=== PATIENT | male | born 1955 | race African-American/Black ===

== ENCOUNTER 2016-07-25 21:48 | Observation (INO) | payer OTHER ==
[2016-07-25] MEDS ORDERED: FENTANYL CITRATE INJ/PF 100 MCG/2 ML AMPUL IV ONE (23:38)
[2016-07-25 23:50] LABS: ALANINE AMINOTRANSFERASE 55 U/L (21-72); ALBUMIN 4.7 g/dL (3.5-5.0); ALKALINE PHOSPHATASE 41 U/L (38-126); ANION GAP 15 (5-19); ASPARTATE AMINO TRANSFERASE 26 U/L (17-59); BILIRUBIN,DIRECT 0.3 mg/dL (0.0-0.4); BILIRUBIN,TOTAL 0.8 mg/dL (0.2-1.3); BLOOD UREA NITROGEN 26 mg/dL (7-20); CARBON DIOXIDE 26 mmol/L (22-30); CHLORIDE 106 mmol/L (98-107); CREATININE RESULT 1.57 mg/dL (0.52-1.25); GLUCOSE 90 mg/dL (75-110); LIPASE 190.5 U/L (23-300); POTASSIUM 3.6 mmol/L (3.6-5.0); SODIUM 146.6 mmol/L (137-145); TOTAL PROTEIN 7.1 g/dL (6.3-8.2)
[2016-07-25] MEDS ORDERED: NORMAL SALINE 1000 ML 1,000 ML IV ONE (23:54)
[2016-07-25] MEDS ORDERED: NORMAL SALINE 1000 ML 1,000 ML IV PRN (23:56)
[2016-07-25] MEDS ORDERED: HYDROMORPHONE HCL INJ/PF 2 MG/ML AMPULE IV PRN (23:58)
[2016-07-25] MEDS ORDERED: ONDANSETRON HCL INJ/PF 4 MG/2 ML SDV IV ONE (23:58)
[2016-07-26 00:11] LABS: ABSOLUTE EOSINOPHILS # (AUTO) 0.1 10^3/uL (0.0-0.6); ABSOLUTE LYMPHOCYTES (AUTO) 0.4 10^3/uL (0.5-4.7); ABSOLUTE MONOCYTES (AUTO) 0.1 10^3/uL (0.1-1.4); ABSOLUTE NEUT (AUTO) 6.3 10^3/uL (1.7-8.2); BASOPHILS % (AUTO) 0.3 % (0-2); EOSINOPHILS % (AUTO) 1.2 % (0-6); HEMATOCRIT 22.4 % (37.9-51.0); HGB HCT DIFFERENCE -0.5; MEAN CORPUSCULAR HEMOGLOBIN 29.8 pg (27.0-33.4); MEAN CORPUSCULAR HGB CONC 32.5 g/dL (32.0-36.0); MEAN CORPUSCULAR VOLUME 92 fl (80-97); MONOCYTES % (AUTO) 1.4 % (3-13); RED BLOOD COUNT 2.44 10^6/uL (4.35-5.55); RED CELL DISTRIBUTION WIDTH 22.7 % (11.5-14.0); SEGMENTED NEUTROPHILS % (AUTO) 91.1 % (42-78); WHITE BLOOD COUNT 6.9 10^3/uL (4.0-10.5)
--- NOTE | 2016-07-26 00:16 | ER Document Report ---
ED GI/ - General Chief Complaint: Abdominal Pain Stated Complaint: ABDOMINAL PAIN Time Seen by Provider: 07/25/16 23:32 Notes: Patient is a 61-year-old male comes emergency department for chief complaint of abdominal pain. He has a known umbilical hernia, he is supposed to follow-up within the next week with [place] [facility], he was actually supposed to have this repaired last year but this was delayed due to a stroke. He denies any abdominal surgeries, he does not smoke. He states that this evening pain suddenly became sharp and constant. Last bowel movement earlier today and was nonbloody. He denies vomiting, fever, or other locations of pain. He takes aspirin, is not on a blood thinner. Past medical history of type 2 diabetes, CVA, hypertension. TRAVEL OUTSIDE OF THE [place] IN LAST 30 DAYS: No - Related Data Allergies/Adverse Reactions: enalapril [Enalapril] Allergy (Verified 07/25/16 22:37) swelling Home Medications: Current Home Medications Amlodipine Besylate 10 mg PO DAILY 07/25/16 [History] Ascorbic Acid [Vitamin C 500 mg Tablet] 500 mg PO DAILY 07/25/16 [History] Aspirin/Dipyridamole [Aggrenox 25 mg/200 mg Capsule SA] 1 cap.sr PO Q12 [History] Cholecalciferol (Vitamin D3) [Vitamin D3] 5,000 unit PO DAILY 07/25/16 [History] Cyanocobalamin (Vitamin B-12) [B-12] 1,000 mcg PO DAILY 07/25/16 [History] Folic Acid 1 mg PO DAILY 07/25/16 [History] Glimepiride [Amaryl 4 mg Tablet] 4 mg PO BID 07/25/16 [History] Iron 65 mg PO DAILY 07/25/16 [History] Losartan/Hydrochlorothiazide [Hyzaar 100-25 Tablet] 1 each PO DAILY 07/25/16 [ History] Metformin HCl [Metformin HCl ER] 1,000 mg PO BID 07/25/16 [History] Methotrexate Sodium [Methotrexate] 8 tab PO Q7D 07/25/16 [History] Metoprolol Tartrate 25 mg PO BID 07/25/16 [History] Pioglitazone HCl 15 mg PO DAILY 07/25/16 [History] Simvastatin 20 mg PO DAILY 07/25/16 [History] Past Medical History - General Information source: Patient - Social History Smoking Status: Never Smoker Frequency of alcohol use: None Drug Abuse: None Lives with: Family Family History: None Patient has suicidal ideation: No Patient has homicidal ideation: No - Past Medical History Cardiac Medical History: Reports: Hx Coronary Artery Disease, Hx Hypertension Denies: Hx Heart Attack Pulmonary Medical History: Denies: Hx Asthma, Hx Bronchitis, Hx COPD, Hx Pneumonia Neurological Medical History: Denies: Hx Cerebrovascular Accident, Hx Seizures Endocrine Medical History: Reports: Hx Diabetes Mellitus Type 2 Renal/ Medical History: Denies: Hx Peritoneal Dialysis Musculoskeltal Medical History: Reports Hx Arthritis - rheumatoid Surgical Hx: Negative - Immunizations Hx Diphtheria, Pertussis, Tetanus Vaccination: No Review of Systems - Review of Systems Constitutional: No symptoms reported EENT: No symptoms reported Cardiovascular: No symptoms reported Respiratory: No symptoms reported Gastrointestinal: See HPI Genitourinary: No symptoms reported Male Genitourinary: No symptoms reported Musculoskeletal: No symptoms reported Skin: No symptoms reported Hematologic/Lymphatic: No symptoms reported Neurological/Psychological: No symptoms reported Physical Exam - Vital signs Vitals: Temp Pulse Resp BP Pulse Ox 99.0 F 89 20 158/65 H 95 07/25/16 21:52 07/25/16 21:52 07/25/16 21:52 07/25/16 21:52 07/25/16 21:52 Interpretation: Normal - General General appearance: Alert In distress: Mild - patient shifting uncomfortably, no severe distress - HEENT Head: Normocephalic, Atraumatic Eyes: Normal Cornea: Normal Extraocular movements intact: Yes Eyelashes: Normal Pupils: PERRL Mouth/Lips: Normal Mucous membranes: Normal Pharynx: Normal Neck: Normal - Respiratory Respiratory status: No respiratory distress Chest status: Nontender Breath sounds: Normal. No: Decreased air movement, Wheezing Chest palpation: Normal - Cardiovascular Rhythm: Regular. No: Tachycardia Heart sounds: Normal auscultation, S1 appreciated, S2 appreciated Murmur: No - Abdominal Inspection: Normal Distension: No distension Bowel sounds: Normal Tenderness: Tender - There is a red, firm, very tender umbilical hernia on examination, no bowel sounds in the hernia, soft bowel sounds surrounding the hernia, abdominal exam is unremarkable otherwise Organomegaly: No organomegaly - Back Back: Normal, Nontender. No: Tender - Extremities General upper extremity: Normal inspection, Nontender, Normal color, Normal ROM , Normal temperature General lower extremity: Normal inspection, Nontender, Normal color, Normal ROM , Normal temperature, Normal weight bearing. No: Avel's sign - Neurological Neuro grossly intact: Yes Cognition: Normal Orientation: AAOx4 [place] Coma Scale Eye Opening: Spontaneous Kat Coma Scale Verbal: Oriented [place] Coma Scale Motor: Obeys Commands Kat Coma Scale Total: 15 Speech: Normal Motor strength normal: LUE, RUE, LLE, RLE Sensory: Normal - Psychological Associated symptoms: Normal affect, Normal mood - Skin Skin Temperature: Warm Skin Moisture: Dry Skin Color: Normal Course - Re-evaluation Re-evalutation: Lab reports blood clotted (CBC). Will have to redraw. Patient with incarcerated umbilical hernia on examination, gave fentanyl but unable to reduce. Patient discussed with Dr. Bobby. 07/26/16 23:55 Called and spoke with Surgeon diamond sander, Dr. Donahue. CBC shows microcytic anemia at 7.6 hemoglobin, type and screen performed, checked rectal examination which is nonbloody, no blood on laboratory results. Chemistry shows acute renal insufficiency, patient given IV fluids. Dr. Donahue examined the patient at bedside, he recommends surgery for incarcerated hernia. Informed him of the hemoglobin, patient will have type and screen performed, he requests as needed pain medication and continue with fluids as well 07/26/16 03:19 Dr. Lyn called, asked that I put in antibiotic and pain medication orders because of delay in the operating room availability (another patient still in surgery). - Vital Signs Vital signs: Temp Pulse Resp BP Pulse Ox 97.2 F 81 16 145/67 H 94 07/26/16 05:07 07/26/16 05:07 07/26/16 05:07 07/26/16 05:07 07/26/16 05:07 - Laboratory Result Diagrams: 07/25/16 23:57 07/25/16 23:15 Laboratory results interpreted by me: 07/25/16 07/25/16 07/25/16 23:15 23:57 23:57 RBC 2.44 L Hgb 7.3 L Hct 22.4 L RDW 22.7 H Plt Count 147 L Seg Neutrophils % 91.1 H Lymphocytes % 6.0 L Monocytes % 1.4 L Absolute Lymphocytes 0.4 L Sodium 146.6 H BUN 26 H Creatinine 1.57 H Est GFR ( Amer) 55 L Est GFR (Non-Af Amer) 45 L Lactic Acid 0.6 L Crossmatch 07/26/16 00:45 RBC Hgb Hct RDW Plt Count Seg Neutrophils % Lymphocytes % Monocytes % Absolute Lymphocytes Sodium BUN Creatinine Est GFR ( Amer) Est GFR (Non-Af Amer) Lactic Acid Crossmatch See Detail Discharge - Discharge Clinical Impression: Incarcerated umbilical hernia, Anemia requiring transfusions Condition: Stable Disposition: ADMITTED INPATIENT Admitting Provider: Surgicalist Unit Admitted: OR
[2016-07-26 00:18] LABS: HEMOGLOBIN 7.3 g/dL (13.5-17.0)
[2016-07-26] MEDS ORDERED: NORMAL SALINE 250 ML IV PRN ×2 (00:32)
--- NOTE | 2016-07-26 01:13 | HISTORY AND PHYSICAL E ---
History and Physical NAME: ALYCIA CELAYA : 1955 AGE: 61Y ADMITTED: 07/26/2016 ROOM: CHIEF COMPLAINT: Abdominal pains. HISTORY OF PRESENT ILLNESS: This is a 61-year-old male who has been complaining of abdominal pains around the umbilical area for the past few days, worse 07/25/16. He denies any nausea nor vomiting. He is supposed to have consultation at [facility] next week for elective repair of umbilical hernia. PAST HISTORY: 1. History of rheumatoid arthritis. 2. Diabetes mellitus. 3. Hypertension. 4. Stroke 12/2015 with a left-sided weakness but since then has fully recovered. 5. He is supposed to have his umbilical hernia repair 01/2016, but because of the stroke it was postponed. MEDICATIONS: 1. Amlodipine and metoprolol for hypertension. 2. Metformin for diabetes. 3. Simvastatin for hyperlipidemia. 4. Methotrexate for rheumatoid arthritis. ALLERGIES: No known. SOCIAL HISTORY: Denies smoking or drinking, nor drug use. REVIEW OF SYSTEMS: Complaining of severe umbilical pains for the past several hours. The pains got worse last night and brought him to the emergency room. In the past he could reduce the hernia but now in the past couple of weeks unable to do so. He denies any chest pain, shortness of breath, diarrhea, or constipation. No dysuria. The rest of the symptoms are unremarkable. He has some joint pains due to rheumatoid arthritis. FAMILY HISTORY: Noncontributory. PHYSICAL EXAMINATION: GENERAL: Well-developed, well-nourished, 61-year-old male alert and oriented, complaining of umbilical pain. HEENT: Neck is supple, no thyromegaly. LUNGS: Clear. HEART: Regular sinus rhythm. ABDOMEN: Soft, but the area of the umbilicus is incarcerated hernia with erythema and inflammation. This is also markedly tender. EXTREMITIES: No edema. LABORATORY DATA: Hemoglobin is 7.6. His most recent hemoglobin was 9.5. IMPRESSION: 1. Incarcerated umbilical hernia with starting cellulitis. 2. Diabetes mellitus. 3. Rheumatoid arthritis. 4. Hypertension. 5. Hypertriglyceridemia. 6. History of stroke. PLAN: To start transfusing him and repair the umbilical hernia with possible use of mesh, possible bowel resection if indeed there is bowel that is strangulated. Start him on IV antibiotics and hydrate him. DICTATING PHYSICIAN: KYLE SESAY M.D. [id number] PHY#: [id number] ID: [id number] JOB#: [id number] ACCT: [id number] cc:KYLE SESAY M.D. >
[2016-07-26] MEDS ORDERED: MIDAZOLAM 2 MG/2 ML INJ ONE (02:54)
[2016-07-26] MEDS ORDERED: FENTANYL CITRATE INJ/PF 100 MCG/2 ML AMPUL ONE ×2 (02:54)
[2016-07-26] MEDS ORDERED: HYDROMORPHONE HCL INJ/PF 2 MG/ML AMPULE ONE (02:54)
[2016-07-26] MEDS ORDERED: ACETAMINOPHEN 100 ML IV ONE (02:55)
[2016-07-26] MEDS ORDERED: PROPOFOL INJ 200 MG/20 ML VIAL IV ONE (02:55)
[2016-07-26] MEDS ORDERED: HYDROMORPHONE HCL INJ/PF 2 MG/ML AMPULE IV ONE (03:17)
[2016-07-26] MEDS ORDERED: KETAMINE HCL INJ 500 MG/10 ML VIAL ONE (03:39)
[2016-07-26] MEDS: ERTAPENEM SODIUM INJ 1 GM VIAL IV ONE ×2 (03:40→03:50)
[2016-07-26] MEDS ORDERED: DIPHENHYDRAMINE HCL 50 MG/ML VIAL IV PRN (04:33)
[2016-07-26] MEDS ORDERED: FENTANYL CITRATE INJ/PF 100 MCG/2 ML AMPUL IV PRN ×3 (04:33)
[2016-07-26] MEDS ORDERED: MORPHINE SULFATE 10 MG/ML INJ IV PRN (04:33)
--- NOTE | 2016-07-26 06:24 | OPERATIVE REPORT E ---
Operative Report NAME: ALYCIA CELAYA : 1955 AGE: 61Y DATE OF SURGERY: 07/26/2016 ROOM: ED11 PREOPERATIVE DIAGNOSIS: Incarcerated umbilical hernia. POSTOPERATIVE DIAGNOSIS: Incarcerated umbilical hernia with omentum in the sac. PROCEDURE DONE: Resection of incarcerated omentum and repair of umbilical hernia with mesh. SURGEON: KYLE SESAY M.D. ANESTHESIA: General. INDICATION: This is a 61-year-old male who was known to have an umbilical hernia. In the past few days, the hernia was not reducible and yesterday developed severe pains with some nausea. He was seen in the emergency room and noted to have a markedly tender and reddened umbilical hernia site. The patient is a diabetic and also takes methotrexate for rheumatoid arthritis. This may account for the normal white count. DESCRIPTION OF PROCEDURE: After adequate general anesthesia, patient was placed in supine position and the abdomen prepped and draped in the usual sterile fashion. An appropriate timeout was done. Next, a midline incision made over the umbilicus and carried down to the subcutaneous area with cautery. The sac was then identified and noted to be thickened with some edema. The sac was bluntly dissected with hemostat and cautery. This dissected all the way down into the fascia. The sac was subsequently opened and a thickened omentum was noted. The omentum was pulled over the fascia and the base, which was quite soft, was serially clamped and divided over the clamp. No evidence of bowel involvement in the hernia sac. The glans were then ligated with 0 Vicryl ties. Omentum roughly measured about 8 cm in length and about 4 cm in diameter. It was then sent for pathology. Next, the sac was then divided right at the junction of the fascia. It was then further dissected below the fascia bluntly to allow placement of 3.2 inch Ventralex mesh. The fascia defect was about 2.5 cm in diameter. There is still quite a lot of edema around the sac and further hemostasis was then obtained with cautery. Next, the Ventralex mesh was then sutured in a U stitch in the fascia on the 4 corners of the Ventralex. The Ventralex was subsequently tied after placement of 4 corner sutures using 0 Vicryl. The handle of the Ventralex subsequently divided close to the fascia. Next, the part of the fascia and the peritoneum was then sutured back together to partially close the hernia defect. An 0 Vicryl suture was then placed to tie down the umbilicus to the mid part of the fascia. The area was subsequently irrigated with saline solution. Next, the skin incisions were then closed with gab. A piece of cotton ball soaked in Betadine was then used to be placed on top of the umbilicus also to primarily make the skin attach to the underlying structures as a pressure dressing. A transparent dressing was then placed over the incision site and over the umbilicus. Needle, instrument, and sponge count were all correct, and estimated blood loss about 20 mL. Patient tolerated procedure well. Needle, instrument, and sponge count were all correct. Patient brought to the recovery room in satisfactory condition. Of note, patient had a hemoglobin of 7.5, maybe from the methotrexate therapy and his diabetes and had 2 units of packed cells, which was started before the procedure. DICTATING PHYSICIAN: KYLE SESAY M.D. [id number] Y#: [id number] ID: [id number] JOB#: [id number] ACCT: [id number] cc:KYLE SESAY M.D. >
[2016-07-26] MEDS ORDERED: HYDROMORPHONE HCL INJ/PF 2 MG/ML AMPULE IV PRN ×2 (07:50)
[2016-07-26] MEDS ORDERED: OXYCODONE-ACETAMINOPHEN 5-325 MG TABLET PO PRN (07:51)
[2016-07-26] MEDS ORDERED: ONDANSETRON HCL INJ/PF 4 MG/2 ML SDV IV PRN (07:51)
[2016-07-26] MEDS ORDERED: ROCURONIUM BROMIDE INJ 50 MG/5 ML VIAL IV ONE (09:15)
[2016-07-26] MEDS ORDERED: GLYCOPYRROLATE INJ 0.4 MG/2 ML VIAL ONE (09:15)
[2016-07-26] MEDS ORDERED: NEOSTIGMINE METHYLSULFATE 10 MG/10 ML VIAL ONE (09:15)
[2016-07-26] MEDS ORDERED: SUCCINYLCHOLINE CHLORIDE INJ 200 MG/10 ML VIAL ONE (09:15)
[2016-07-26 12:10] LABS: HEMATOCRIT 27.8 % (37.9-51.0); HGB HCT DIFFERENCE -0.8; MEAN CORPUSCULAR HEMOGLOBIN 29.9 pg (27.0-33.4); MEAN CORPUSCULAR HGB CONC 32.3 g/dL (32.0-36.0); MEAN CORPUSCULAR VOLUME 92 fl (80-97); RED BLOOD COUNT 3.01 10^6/uL (4.35-5.55); RED CELL DISTRIBUTION WIDTH 20.5 % (11.5-14.0); WHITE BLOOD COUNT 6.6 10^3/uL (4.0-10.5)
[2016-07-26 12:40] LABS: ANION GAP 13 (5-19); BLOOD UREA NITROGEN 20 mg/dL (7-20); CALCIUM 8.9 mg/dL (8.4-10.2); CARBON DIOXIDE 23 mmol/L (22-30); CHLORIDE 106 mmol/L (98-107); CREATININE RESULT 1.23 mg/dL (0.52-1.25); GLUCOSE 230 mg/dL (75-110); POTASSIUM 3.8 mmol/L (3.6-5.0); SODIUM 142.2 mmol/L (137-145)
[2016-07-26 13:01] LABS: BASOPHILS % (MANUAL) 0 % (0-2); EOSINOPHILS % (MANUAL) 0 % (0-6); LYMPHOCYTES % (MANUAL) 7 % (13-45); TOTAL CELLS COUNTED 100
[2016-07-26 13:02] LABS: ANISOCYTOSIS 2+; OVALOCYTES 1+; POIKILOCYTOSIS 1+; POLYCHROMASIA SLIGHT; SCHISTOCYTES SLIGHT; TEAR DROP CELLS SLIGHT; TOXIC GRANULATION SLIGHT
[2016-07-26] MEDS ORDERED: TAMSULOSIN HCL 0.4 MG CAP.SR.24H PO ONE (15:30)
--- NOTE | 2016-07-26 17:03 | DISCHARGE SUMMARY E ---
Discharge Summary NAME: ALYCIA CELAYA : 1955 AGE: 61Y ADMITTED: 07/26/2016 DISCHARGED: 07/26/2016 PROCEDURE DONE: Reduction of umbilical hernia with repair using mesh. SUMMARY: This is a 61-year-old male who complained of severe umbilical pain yesterday. Pains were very significant and the area was erythematous. He had a CAT scan that showed no bowel involved in the hernia, but at any rate he is a diabetic and he might be developing cellulitis to an abscess of the umbilical site. This also was not able to be reduced in the emergency room. He then underwent reduction and repair of the umbilical hernia and placement of mesh. This was done around 4:00 this morning. Today, he is tolerating his diet well and the incision looks good. However, he has a little difficulty voiding. An order for Flomax was given and this improved his urination and he can be discharged and to be followed up in the surgical clinic in about 1-2 weeks. He is advised not to lift any heavy stuff more than 10 pounds. 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 DICTATING PHYSICIAN: KYLE SESAY M.D. [id number] PHY#: [id number] ID: [id number] JOB#: [id number] ACCT: [id number] cc:Kamini LAUGHLIN PA >
[2016-07-26] MEDS ORDERED: LIDOCAINE 2% URO-JET 5 ML KIT MM ONE (20:30)
--- NOTE | 2016-07-26 20:43 | OPERATIVE REPORT E ---
Operative Report NAME: ALYCIA CELAYA : 1955 AGE: 61Y DATE OF SURGERY: 07/26/2016 ROOM: 424 PREOPERATIVE DIAGNOSIS: Urinary retention and failure to place a Samayoa by nurses. POSTOPERATIVE DIAGNOSIS: Urinary retention and failure to place a Samayoa by nurses. OPERATION: Placement of coude Samayoa catheter. SURGEON: KYLE SESAY M.D. ANESTHESIA: Topical lidocaine. INDICATION: This is a 61-year-old male who underwent repair of incarcerated umbilical hernia yesterday. Today the patient unable to void. He can only void about 50 mL to 100 mL at a time. He had a bladder scan that showed 750 ml. The nurses attempted to place a Samayoa catheter but unable to do so. PROCEDURE: The patient was placed in a supine position and the penile area prepped and draped in the usual sterile fashion. Uro-Jet Xylocaine gel was then injected through the penis and left for about a minute. Following this, an 18-Chinese coude Samayoa catheter was then inserted into the bladder. The bladder balloon was inflated and the catheter connected to a bag. Initial drainage about 500 mL. The patient with some relief. The patient was started on Flomax this afternoon. We will continue the Flomax and we will discontinue the Samayoa catheter spotter driver tomorrow and see if he can void on his own. If he is unable to void, will place another coude catheter and discharge him to be followed up in the urology outpatient clinic. DICTATING PHYSICIAN: KYLE SESAY M.D. [id number] PHY#: [id number] ID: [id number] JOB#: [id number] ACCT: [id number] cc:KYLE SESAY M.D. >
[2016-07-26] MEDS ORDERED: ERTAPENEM SODIUM 1 GM in NORMAL SALINE 50 ML IV SCH (22:00)
--- NOTE | 2016-07-27 08:44 | DISCHARGE SUMMARY E ---
Discharge Summary NAME: ALYCIA CELAYA : 1955 AGE: 61Y ADMITTED: 07/26/2016 DISCHARGED: 07/27/2016 FINAL DIAGNOSIS: Incarcerated umbilical hernia. PROCEDURE DONE: Reduction of incarcerated umbilical hernia with resection of incarcerated omentum and repair of the hernia with Ventralex mesh. HOSPITAL COURSE: Postoperatively, patient was supposed to be discharged 07/26/2016, but patient unable to void last night and has about 750 mL of bladder urine on the scan. There was difficulty with placement of Samayoa catheter by the nurses and I eventually put in a coude Samayoa catheter with some difficulty. This morning, patient is doing well except the abdomen is somewhat distended and patient unable to pass flatus. The plan is to be re-evaluated by Dr. Royal today prior to discharge and to discharge him with a Samayoa catheter. He might need to be on p.o. antibiotics while on Samayoa and also for the cellulitis from the incarceration of the umbilical hernia. Patient to be scheduled for followup at the [facility]rology Clinic in about 5 days for removal of the Samayoa catheter. ADDENDUM: Patient is a diabetic and he may have some ileus both from the diabetes and from the urinary bladder distention last night. Also, he might be recovering from the cellulitis of the umbilical hernia. DICTATING PHYSICIAN: KYLE SESAY M.D. [id number] PHY#: [id number] ID: [id number] JOB#: [id number] ACCT: [id number] cc:Kamini LAUGHLIN PA >
[2016-07-27] MEDS ORDERED: SIMETHICONE 80 MG TAB.CHEW PO PRN (09:10)
[2016-07-27] MEDS ORDERED: BISACODYL 10 MG SUPP.RECT PR ONE (10:00)
[2016-07-27 14:30] VITALS: BP 156/65
== END 2016-07-27 14:30 | disposition home or self-care (01) ==
LOC: ER 21:48 → UNDOADMIN 07-26 01:37 → EH 07-26 01:37 → 4S 07-26 06:46 → INTOOBSV 07-26 17:43 → 4S 07-26 17:43
PROC: 0T9B70Z Drainage of Bladder with Drainage Device, Via Natural or Artificial Opening (ICD-10-PCS; 2016-07-26)
PROC: 30233N1 Transfusion of Nonautologous Red Blood Cells into Peripheral Vein, Percutaneous Approach (ICD-10-PCS; 2016-07-26)
PROC: 0WUF4JZ Supplement Abdominal Wall with Synthetic Substitute, Percutaneous Endoscopic Approach (ICD-10-PCS; principal; 2016-07-26 03:50)
DX: K42.0 Umbilical hernia with obstruction, without gangrene (principal); L03.818 Cellulitis of other sites; R33.9 Retention of urine, unspecified; D50.9 Iron deficiency anemia, unspecified; N28.9 Disorder of kidney and ureter, unspecified; M06.9 Rheumatoid arthritis, unspecified; E11.9 Type 2 diabetes mellitus without complications; I10 Essential (primary) hypertension; E78.5 Hyperlipidemia, unspecified; I25.10 Atherosclerotic heart disease of native coronary artery without angina pectoris; Z86.73 Personal history of transient ischemic attack (TIA), and cerebral infarction without residual deficits; Z79.899 Other long term (current) drug therapy; Z79.82 Long term (current) use of aspirin; Z79.84 Long term (current) use of oral hypoglycemic drugs
CPT/HCPCS: 49653; 51702; 99285; 96361; 96374; 96375; 86900; 86901; 36415 ×2; 36430; 86850; 83605; 83690; 85025; 82272; 80048; 80053; 86920; 88305 ×2; G0378 ×2; P9016; J2250; J3490 ×2; J3010 ×2; J1335; J1170; J0330; J2405; J7030; J2704; J0131; 750

== ENCOUNTER 2016-07-31 16:14 | Observation (INO) | payer OTHER ==
[2016-07-31] MEDS ORDERED: NORMAL SALINE 1000 ML 1,000 ML IV ONE ×2 (17:00→20:09)
--- NOTE | 2016-07-31 17:00 | ER Document Report ---
ED Medical Screen (RME) - General Chief Complaint: Abdominal Pain Stated Complaint: ABDOMINAL PAIN/SWELLING,CAN'T URINATE Time Seen by Provider: 07/31/16 16:55 Notes: This 61-year-old male patient had an umbilical hernia repair done on 07/26/2016. Not had a bowel movement 3-4 days. He had the Samayoa catheter removed at 9:00 this morning and has not urinated since then. He reports he has been having fever, abdomen hurts is distended and cannot eat or drink. I have greeted and performed a rapid initial assessment of this patient. A comprehensive ED assessment and evaluation of the patient, analysis of test results and completion of the medical decision making process will be conducted by additional ED providers. TRAVEL OUTSIDE OF THE [place] IN LAST 30 DAYS: No - Related Data Allergies/Adverse Reactions: enalapril [Enalapril] Allergy (Verified 07/25/16 22:37) swelling Past Medical History - Past Medical History Cardiac Medical History: Reports: Hx Coronary Artery Disease, Hx Hypertension Denies: Hx Heart Attack Pulmonary Medical History: Denies: Hx Asthma, Hx Bronchitis, Hx COPD, Hx Pneumonia Neurological Medical History: Denies: Hx Cerebrovascular Accident, Hx Seizures Endocrine Medical History: Reports: Hx Diabetes Mellitus Type 2 Renal/ Medical History: Denies: Hx Peritoneal Dialysis Musculoskeltal Medical History: Reports Hx Arthritis - rheumatoid - Immunizations Hx Diphtheria, Pertussis, Tetanus Vaccination: No Physical Exam - Vital signs Vitals: Temp Pulse Resp BP Pulse Ox 99.9 F 83 20 154/59 H 95 07/31/16 16:27 07/31/16 16:27 07/31/16 16:27 07/31/16 16:27 07/31/16 16:27 Course - Vital Signs Vital signs: Temp Pulse Resp BP Pulse Ox 99.9 F 83 20 154/59 H 95 07/31/16 16:27 07/31/16 16:27 07/31/16 16:27 07/31/16 16:27 07/31/16 16:27
--- NOTE | 2016-07-31 17:43 | RADIOLOGY REPORT (SQ) ---
EXAM DESCRIPTION: KUB/ABDOMEN (SINGLE VIEW) COMPLETED DATE/TIME: 07/31/2016 5:24 pm REASON FOR STUDY: constipation, 5 days post hernia repair COMPARISON: None. NUMBER OF VIEWS: One view. TECHNIQUE: Supine radiographic image of the abdomen acquired. LIMITATIONS: None. FINDINGS: BOWEL GAS PATTERN: Gas pattern is nonspecific. CALCIFICATIONS: Surgical clips are seen in the midline. SOFT TISSUES: No gross mass or suggestion of organomegaly. HARDWARE: None in the abdomen. BONES: No acute fracture. No worrisome bone lesions. OTHER: No other significant finding. IMPRESSION: Nonspecific gas pattern. Postsurgical changes are present clips in the midline. TECHNICAL DOCUMENTATION: JOB ID: [id number] [email or web address] All Rights Reserved
[2016-07-31 19:06] LABS: HEMATOCRIT 34.2 % (37.9-51.0); HEMOGLOBIN 10.7 g/dL (13.5-17.0); HGB HCT DIFFERENCE -2.1; MEAN CORPUSCULAR HEMOGLOBIN 29.2 pg (27.0-33.4); MEAN CORPUSCULAR HGB CONC 31.3 g/dL (32.0-36.0); MEAN CORPUSCULAR VOLUME 93 fl (80-97); RED BLOOD COUNT 3.67 10^6/uL (4.35-5.55); RED CELL DISTRIBUTION WIDTH 20.7 % (11.5-14.0); WHITE BLOOD COUNT 11.7 10^3/uL (4.0-10.5)
[2016-07-31 19:08] LABS: ALANINE AMINOTRANSFERASE 30 U/L (21-72); ALKALINE PHOSPHATASE 50 U/L (38-126); ANION GAP 16 (5-19); ASPARTATE AMINO TRANSFERASE 20 U/L (17-59); BILIRUBIN,DIRECT 0.5 mg/dL (0.0-0.4); BILIRUBIN,TOTAL 1.5 mg/dL (0.2-1.3); BLOOD UREA NITROGEN 18 mg/dL (7-20); CALCIUM 9.8 mg/dL (8.4-10.2); CARBON DIOXIDE 20 mmol/L (22-30); CHLORIDE 105 mmol/L (98-107); GLUCOSE 180 mg/dL (75-110); POTASSIUM 3.8 mmol/L (3.6-5.0); SODIUM 140.9 mmol/L (137-145); TOTAL PROTEIN 6.5 g/dL (6.3-8.2)
[2016-07-31 19:23] LABS: BAND NEUTROPHILS % (MANUAL) 3 % (3-5); BASOPHILS % (MANUAL) 0 % (0-2); EOSINOPHILS % (MANUAL) 0 % (0-6); LYMPHOCYTES % (MANUAL) 4 % (13-45); TOTAL CELLS COUNTED 100
[2016-07-31 19:27] LABS: ACANTHOCYTES SLIGHT; ANISOCYTOSIS 3+; OVALOCYTES 2+; POIKILOCYTOSIS 2+; POLYCHROMASIA SLIGHT; SCHISTOCYTES 1+; TEAR DROP CELLS 1+
--- NOTE | 2016-07-31 20:04 | ER Document Report ---
ED GI/ - General Chief Complaint: Abdominal Pain Stated Complaint: ABDOMINAL PAIN/SWELLING,CAN'T URINATE Time Seen by Provider: 07/31/16 16:55 Notes: Patient is a 61-year-old male, past medical history diabetes (on metformin), presents with generalized abdominal pain and tenderness since his incarcerated umbilical hernia repair performed [address] Donahue. He initially was unable to urinate after his das was removed by Urology this morning, but he urinated when he arrived to the ER. Taking his Percocet and started Colace this morning. He is also feeling nauseous, but has not vomited. Patient has not passed gas or had a bowel movement since his surgery. Denies fevers, flank pain, hematuria, chest pain, shortness of breath or rash. TRAVEL OUTSIDE OF THE [place] IN LAST 30 DAYS: No - Related Data Allergies/Adverse Reactions: enalapril [Enalapril] Allergy (Verified 07/25/16 22:37) swelling Past Medical History - General Information source: Patient - Social History Smoking Status: Unknown if Ever Smoked Family History: None - Past Medical History Cardiac Medical History: Reports: Hx Coronary Artery Disease, Hx Hypertension Denies: Hx Heart Attack Pulmonary Medical History: Denies: Hx Asthma, Hx Bronchitis, Hx COPD, Hx Pneumonia Neurological Medical History: Denies: Hx Cerebrovascular Accident, Hx Seizures Endocrine Medical History: Reports: Hx Diabetes Mellitus Type 2 Renal/ Medical History: Denies: Hx Peritoneal Dialysis Musculoskeltal Medical History: Reports Hx Arthritis - rheumatoid - Immunizations Hx Diphtheria, Pertussis, Tetanus Vaccination: No Hx Pneumococcal Vaccination: 02/11/15 Review of Systems - Review of Systems Notes: REVIEW OF SYSTEMS: CONSTITUTIONAL: -fevers, -chills EENT: -eye pain, -difficulty swallowing, -nasal congestion CARDIOVASCULAR:-chest pain, -syncope. RESPIRATORY: -cough, -SOB GASTROINTESTINAL: +abdominal pain, +constipation, +nausea, -vomiting, -diarrhea GENITOURINARY: -dysuria, -hematuria MUSCULOSKELETAL: -back pain, -neck pain SKIN: -rash or skin lesions. HEMATOLOGIC: -easy bruising or bleeding. LYMPHATIC: -swollen, enlarged glands. NEUROLOGICAL: -altered mental status or loss of consciousness, -headache, - neurologic symptoms PSYCHIATRIC: -anxiety, -depression. ALL OTHER SYSTEMS REVIEWED AND NEGATIVE. Physical Exam - Vital signs Vitals: Temp Pulse Resp BP Pulse Ox 99.9 F 83 20 154/59 H 95 07/31/16 16:27 07/31/16 16:27 07/31/16 16:27 07/31/16 16:27 07/31/16 16:27 - Notes Notes: PHYSICAL EXAMINATION: GENERAL: Well-appearing, well-nourished and in no acute distress. HEAD: Atraumatic, normocephalic. EYES: Pupils equal round and reactive to light, extraocular movements intact, sclera anicteric, conjunctiva are normal. ENT: nares patent, oropharynx clear without exudates. Moist mucous membranes. NECK: Normal range of motion, supple without lymphadenopathy LUNGS: Breath sounds clear to auscultation bilaterally and equal. No wheezes rales or rhonchi. HEART: Regular rate and rhythm without murmurs ABDOMEN: Distended, very intermittent high-pitched sounds on auscultation, diffusely tender; well-healing midline surgical scar and gab without redness or discharge EXTREMITIES: Normal range of motion, no pitting or edema. No cyanosis. NEUROLOGICAL: Cranial nerves grossly intact. Normal speech, normal gait. Normal sensory and motor exams. PSYCH: Normal mood, normal affect. SKIN: Warm, Dry, normal turgor, no rashes or lesions noted. Course - Re-evaluation Re-evalutation: 07/31/16 20:[address] Donahue about concern for ileus versus obstruction. He recommends observing the patient overnight, keeping patient n.p.o. and providing IV hydration. Pt urinated a large amount while in the ED. Pt and comfortable with plan. - Vital Signs Vital signs: Temp Pulse Resp BP Pulse Ox 99.9 F 83 20 154/59 H 95 07/31/16 16:27 07/31/16 16:27 07/31/16 16:27 07/31/16 16:27 07/31/16 16:27 - Laboratory Result Diagrams: 07/31/16 18:35 07/31/16 18:35 Laboratory results interpreted by me: 07/31/16 07/31/16 18:35 18:35 WBC 11.7 H RBC 3.67 L Hgb 10.7 L Hct 34.2 L MCHC 31.3 L RDW 20.7 H Seg Neuts % (Manual) 89 H Lymphocytes % (Manual) 4 L Abs Neuts (Manual) 10.8 H Carbon Dioxide 20 L Creatinine 1.40 H Est GFR (Non-Af Amer) 52 L Glucose 180 H Total Bilirubin 1.5 H Direct Bilirubin 0.5 H - Diagnostic Test Radiology reviewed: Image reviewed, Reports reviewed Radiology results interpreted by me: KUB: non-specific bowel gas pattern Discharge - Discharge Clinical Impression: Abdominal pain Qualifiers: Abdominal location: generalized Qualified Code(s): R10.84 - Generalized abdominal pain Condition: Stable Disposition: ADMITTED OBSERVATION Admitting Provider: Surgicalist - [facility] Admitted: Surgical Floor
[2016-08-01] MEDS ORDERED: DEXTROSE 40% GEL 15 GM TUBE PO PRN ×2 (00:46)
[2016-08-01] MEDS ORDERED: GLUCAGON,HUMAN RECOMB 1 MG INJ SUBCUT PRN (00:46)
[2016-08-01] MEDS ORDERED: DEXTROSE 50%-WATER 25 GM/50 ML DISP.SYRIN IV PRN ×2 (00:46)
[2016-08-01] MEDS ORDERED: NORMAL SALINE 1000 ML 1,000 ML IV PRN (01:08)
[2016-08-01] MEDS ORDERED: HYDROMORPHONE HCL INJ/PF 2 MG/ML AMPULE IV PRN (01:08)
[2016-08-01] MEDS ORDERED: ACETAMINOPHEN 325 MG TABLET PO PRN (01:09)
[2016-08-01] MEDS ORDERED: INSULIN LISPRO 100 UNIT/ML 3 ML VIAL SUBCUT PRN (01:11)
--- NOTE | 2016-08-01 01:28 | HISTORY AND PHYSICAL E ---
History and Physical NAME: ALYCIA CELAYA : 1955 AGE: 61Y ADMITTED: 07/31/2016 ROOM: 402 CHIEF COMPLAINT: Abdominal pain. HISTORY OF PRESENT ILLNESS: This is a 61-year-old male who had repair of incarcerated umbilical hernia done about [address] Sesay. The patient's [place] catheter was removed by the urologist this morning and the patient able to void around 7 p.m. in the emergency room. He was taking his Percocet and started Colace this morning. The patient also complaining of nausea but no vomiting. He had no bowel movement since surgery but has been passing gas until today. Denies any fever, hematuria, flank pains, chest pain, shortness of breath, or rash. ALLERGIES: ENALAPRIL, FLAGYL, AND COMPAZINE. PAST MEDICAL HISTORY: 1. Diabetes mellitus on metformin. 2. History of rheumatoid arthritis, taking methotrexate. He complains of joint pains and takes methotrexate p.o. every Saturday. His last dose was last Saturday. REVIEW OF SYSTEMS: As in HPI. The rest of the systems unremarkable. MEDICATIONS: 1. Alogliptin 25 mg daily. 2. Amlodipine 10 mg daily. 3. Vitamin C. 4. Aggrenox 25 mg - 200 mg b.i.d. 5. Vitamin D3, 5000 units daily. 6. Vitamin B12, 1000 mcg daily. 7. Ferrous sulfate 325 mg daily. 8. Folic acid 1 mg p.o. daily. 9. Glimepiride 4 mg p.o. b.i.d. 10. Losartan/hydrochlorothiazide 100 - 25 mg tablet daily. 11. Metformin 1000 mg p.o. b.i.d. 12. Methotrexate 15 mg p.o. every Saturday. 13. Lopressor 25 mg p.o. q.12 hours. 14. Percocet 1 q.6 hours p.r.n. for pain. 15. Pioglitazone or Actos 15 mg daily. 16. Simvastatin 20 mg p.o. at bedtime. 17. Tamsulosin 0.4 mg daily. FAMILY HISTORY: Noncontributory. SOCIAL HISTORY: Denies smoking, no drinking, no drug use. PHYSICAL EXAMINATION: GENERAL: Well-developed, well-nourished 61-year-old male, alert and oriented, complaining of abdominal pain. HEENT: Neck is supple, no thyromegaly. LUNGS: Clear. HEART: Regular sinus rhythm. ABDOMEN: Soft with tenderness in both upper quadrants. The umbilical incision is slightly erythematous but nontender. No evidence of collection. The wound itself is clean and dry. Bowel sounds are slightly hyperactive. EXTREMITIES: No edema. IMPRESSION: 1. Ileus post repair of incarcerated umbilical hernia with mesh. 2. Possible cellulitis of the incision site. 3. Diabetes mellitus. 4. Hypertension. 5. Rheumatoid arthritis. PLAN: 1. To keep the patient n.p.o. 2. IV fluids. 3. Blood cultures then start IV antibiotics. 4. Serial abdominal x-rays and examination. 5. Continue with ambulation and pain management. 6. We will obtain hospitalist consultation for his multiple medications. DICTATING PHYSICIAN: KYLE SESAY M.D. [id number] PHY#: [id number] ID: [id number] JOB#: [id number] ACCT: [id number] cc:KYLE SESAY M.D. >
[2016-08-01] MEDS ORDERED: HYDRALAZINE HCL INJ/PF 20 MG/1 ML SDV IV PRN (07:48)
--- NOTE | 2016-08-01 09:23 | PROGRESS NOTE E ---
Progress Note NAME: ALYCIA CELAYA : 1955 AGE: 61Y DATE: ROOM: 402 SUBJECTIVE: The patient's abdominal pain has decreased considerably. The patient feels more comfortable. He is able to pass his urine on his own. He is passing gas for flatus, but no bowel movement yet. His temperature is 99.4 and his blood pressure is elevated and he is supposed to get some anti-hypertensive medication ordered by the hospitalist. His ileus is probably resolving, but we still need a urine for CARDIAC TECHNOLOGIST to make sure there is no urinary tract infection. I presume the patient to have a UTI and we are treating him with IV Rocephin at this time. ASSESSMENT AND PLAN: 1. At any rate, I will start the patient on liquids p.o. and stop the IV fluids. 2. Get him ambulating. 3. Make sure to get a urine for CARDIAC TECHNOLOGIST this morning. 4. Alternate gab were removed. Still no pains or tenderness of the incision site. The rest of the gab can be removed in the clinic next week. We will reschedule his clinic appointment, which was scheduled for tomorrow, to be for next week, primarily to remove the rest of the gab and for followup. DICTATING PHYSICIAN: KYLE SESAY M.D. [id number] AURA#: [id number] ID: [id number] JOB#: [id number] ACCT: [id number] cc: >
[2016-08-01] MEDS ORDERED: VANCOMYCIN HCL 0 MG in DEXTROSE 5%-WATER 250 ML IV NR (09:45)
[2016-08-01] MEDS ORDERED: CEFTRIAXONE 1 GM/D5W RTU 1 GM/50 ML RTUPB IV SCH (10:00)
--- NOTE | 2016-08-01 10:09 | PDOC CONSULTATION ---
Consultation Consult Date: 08/01/16 Attending physician:: KYLE DONAHUE Consult reason:: Medical management History of Present Illness Admission Date/PCP: 07/31/16 20:25 SHAHIDA BUNN History of Present Illness: The patient is an extremely pleasant 61-year-old -D[place] male with a past medical history significant for rheumatoid arthritis. He is on chronic methotrexate therapy. In addition he has [id number] diabetes mellitus and underlying hypertension. Approximately 1 week ago the patient underwent an umbilical hernia repair performed by Dr. Donahue. He tolerated this procedure well and was sent home. He had not had a bowel movement since his surgery but was passing gas. Over the past couple of days the patient has had increasing abdominal pain and stopped passing gas. He also developed quite a bit of nausea. He was admitted to the hospital by the general surgery service for a postoperative ileus. There are also some concerns he may have some cellulitis around his incision site. Past Medical History Cardiac Medical History: Reports: Hypertension Denies: Myocardial Infarction Pulmonary Medical History: Denies: Asthma, Bronchitis, Chronic Obstructive Pulmonary Disease (COPD), Pneumonia Neurological Medical History: Denies: Seizures Endocrine Medical History: Reports: Diabetes Mellitus Type 2 Endocrine History Note: Rheumatoid arthritis on methotrexate therapy Renal/ Medical History: Denies: None Malignancy Medical History: Denies: None GI Medical History: Reports: Other - Recent umbilical hernia repair Musculoskeltal Medical History: Reports: Arthritis - rheumatoid Psychiatric Medical History: Denies: None Hematology: Reports: Anemia Past Surgical History Past Surgical History: Reports: Other - Umbilical hernia repair Social History Smoking Status: Never Smoker Hx Recreational Drug Use: No Drugs: None Hx Prescription Drug Abuse: No Family History Family History: None, Reviewed & Not Pertinent Parental Family History Reviewed: Yes Children Family History Reviewed: Yes Sibling(s) Family History Reviewed.: Yes Medication/Allergy Home Medications: Alogliptin Benzoate [Alogliptin] 25 mg PO DAILY 07/31/16 Amlodipine Besylate [Norvasc 10 mg Tablet] 10 mg PO DAILY 07/31/16 Ascorbic Acid [Vitamin C 500 mg Tablet] 500 mg PO DAILY 07/31/16 Aspirin/Dipyridamole [Aggrenox 25 mg-200 mg Capsule] 1 cap PO Q12 07/31/16 Cholecalciferol (Vitamin D3) [Vitamin D3] 5,000 unit PO DAILY 07/31/16 Cyanocobalamin (Vitamin B-12) [Vitamin B-12 1000 Mcg Tablet] 1,000 mcg PO DAILY 07/31/16 Ferrous Sulfate [Feosol 325 mg Tablet] 325 mg PO DAILY 07/31/16 Folic Acid [Folvite 1 mg Tablet] 1 mg PO DAILY 07/31/16 Glimepiride [Amaryl 4 mg Tablet] 4 mg PO BID 07/31/16 Losartan/Hydrochlorothiazide [Hyzaar 100-25 Tablet] 1 tab PO DAILY 07/31/16 Metformin HCl [Metformin HCl ER] 1,000 mg PO BID 07/31/16 Methotrexate Sodium [Trexall] 15 mg PO SA@1000 07/31/16 Metoprolol Tartrate [Lopressor 25 mg Tablet] 25 mg PO Q12 07/31/16 Oxycodone HCl/Acetaminophen [Percocet 5-325 mg Tablet] 1 tab PO Q6HP PRN Pioglitazone HCl [Actos 15 mg Tablet] 15 mg PO DAILY 07/31/16 Simvastatin [Zocor 20 mg Tablet] 20 mg PO QHS 07/31/16 Tamsulosin HCl [Flomax 0.4 mg Cap.sr] 0.4 mg PO DAILY 07/31/16 Allergies/Adverse Reactions: enalapril [Enalapril] Allergy (Verified 07/25/16 22:37) swelling MSG Allergy (Uncoded 08/01/16 01:39) Review of Systems Constitutional: PRESENT: fever(s), weakness Eyes: ABSENT: visual disturbances Ears: ABSENT: hearing changes Nose, Mouth, and Throat: ABSENT: headache(s), mouth pain, sore throat Cardiovascular: ABSENT: chest pain, dyspnea on exertion, edema, orthropnea, palpitations Respiratory: ABSENT: cough, dyspnea, sputum Gastrointestinal: PRESENT: abdominal pain, nausea. ABSENT: bloating, diarrhea, hematemesis, hematochezia, vomiting Genitourinary: ABSENT: dysuria, hematuria Integumentary: PRESENT: erythema - He has some warmth and redness around his incision site Neurological: ABSENT: focal weakness, lack of coordination, syncope Psychiatric: ABSENT: anxiety, depression, hallucinations, homidical ideation, suicidal ideation Endocrine: ABSENT: cold intolerance, heat intolerance Hematologic/Lymphatic: ABSENT: easy bruising, lymphadenopathy Physical Exam Vital Signs: Temp Pulse Resp BP Pulse Ox 99.4 F 93 16 159/63 H 95 08/01/16 07:14 08/01/16 07:14 08/01/16 07:14 08/01/16 07:14 08/01/16 07:14 Intake & Output 07/31/16 08/01/16 08/02/16 06:59 06:59 06:59 Intake Total 0 Output Total 325 Balance -325 Weight 87.3 kg General appearance: PRESENT: no acute distress, well-developed, well-nourished Head exam: PRESENT: atraumatic, normocephalic Eye exam: PRESENT: PERRLA. ABSENT: scleral icterus Ear exam: PRESENT: normal external ear exam Mouth exam: PRESENT: moist, neck supple, tongue midline Neck exam: PRESENT: full ROM. ABSENT: carotid bruit, lymphadenopathy, thyromegaly Respiratory exam: PRESENT: clear to auscultation eric. ABSENT: rales, rhonchi, wheezes Cardiovascular exam: PRESENT: RRR, +S1, +S2. ABSENT: diastolic murmur, gallop, rubs, systolic murmur GI/Abdominal exam: PRESENT: diminished bowel sounds, distended, tenderness - He does have some bowel sounds although they are quite hypoactive. He is tender around his incision site. There is some mild erythema and warmth around his incision site Extremities exam: ABSENT: calf tenderness, clubbing, pedal edema Musculoskeletal exam: PRESENT: ambulatory Neurological exam: PRESENT: alert, awake, oriented to person, oriented to place , oriented to time, CN II-XII grossly intact Psychiatric exam: PRESENT: appropriate affect Skin exam: PRESENT: dry - He does have some erythema and increased warmth around his abdominal incision. There is no purulent drainage, warm Results Impressions: KUB X-Ray 07/31/16 16:58 IMPRESSION: Nonspecific gas pattern. Postsurgical changes are present clips in the midline. Assessment & Plan - Diagnosis (1) Postoperative ileus Plan: The patient states his abdominal pain is improving. He has some mild nausea but it is greatly improved as well. He states he just had a very small bowel movement. He states in regards to his abdominal pain he is doing much better today than he was when he first came in. Plan of care per general surgery (2) Cellulitis Plan: The patient does have a low-grade fever as well as some mild leukocytosis. The area around his incision has some mild erythema and warmth. The patient is chronically immunosuppressed due to his methotrexate therapy. I am going to place the patient on broad-spectrum IV antibiotics with IV vancomycin and Zosyn. I believe he needs coverage for MRSA as well as more broad-spectrum gram -negative coverage as well. This can certainly be narrowed after the next day or 2 if he improves. (3) Rheumatoid arthritis Plan: Currently his methotrexate is on hold. (4) Diabetes mellitus Qualifiers: Diabetes mellitus type: type 2 Plan: The patient will be covered with sliding scale coverage here in the hospital. Currently adequately controlled. I will get a hemoglobin A1c in the morning just to be on the safe side to make sure that he does not have issues with markedly uncontrolled blood sugars. He is on 4 different oral medications. (5) Low grade fever Plan: Possibly secondary to underlying cellulitis. He will receive broad-spectrum antibiotics today and we will reevaluate tomorrow. (6) Elevated serum creatinine Plan: I am unsure what his baseline is. He does have a long-standing history of diabetes. We will check a chemistry panel in the morning. Patient is receiving IV fluids. (7) Metabolic acidosis Plan: Possibly due to early infection. Again he will be started on broad-spectrum IV antibiotics. He will have a chemistry panel checked in the morning. (8) Anemia Plan: The patient has a microcytic anemia. As an outpatient he has been treated it looks like for an iron deficiency anemia. He also is taking vitamin B12 and folic acid. Further workup can be obtained as an outpatient. He will have a CBC drawn in the morning. - Time Critical Time spent with patient: 25-34 minutes - Plan Summary Plan Summary: Thank you for the consult of this very nice patient. We will continue to follow along with you here in the hospital to assist with his medical needs.
[2016-08-01 10:19] LABS: HEMATOCRIT 31.4 % (37.9-51.0); HEMOGLOBIN 10.2 g/dL (13.5-17.0); HGB HCT DIFFERENCE -0.8; MEAN CORPUSCULAR HEMOGLOBIN 30.1 pg (27.0-33.4); MEAN CORPUSCULAR HGB CONC 32.4 g/dL (32.0-36.0); MEAN CORPUSCULAR VOLUME 93 fl (80-97); RED BLOOD COUNT 3.38 10^6/uL (4.35-5.55); RED CELL DISTRIBUTION WIDTH 20.1 % (11.5-14.0); WHITE BLOOD COUNT 10.9 10^3/uL (4.0-10.5)
[2016-08-01 10:29] LABS: ANION GAP 14 (5-19); BLOOD UREA NITROGEN 17 mg/dL (7-20); CALCIUM 9.1 mg/dL (8.4-10.2); CARBON DIOXIDE 22 mmol/L (22-30); CHLORIDE 109 mmol/L (98-107); GLUCOSE 102 mg/dL (75-110); POTASSIUM 3.3 mmol/L (3.6-5.0); SODIUM 144.5 mmol/L (137-145)
[2016-08-01 10:43] LABS: ANISOCYTOSIS 3+; BASOPHILS % (MANUAL) 0 % (0-2); EOSINOPHILS % (MANUAL) 2 % (0-6); LYMPHOCYTES % (MANUAL) 5 % (13-45); NUCLEATED RED BLOOD CELLS 1 /100 WBC (0); OVALOCYTES SLIGHT; POIKILOCYTOSIS SLIGHT; TOTAL CELLS COUNTED 100
[2016-08-01 10:45] LABS: APPEARANCE,URINE SLIGHTLY-CLOUDY; BILIRUBIN,URINE NEGATIVE (NEGATIVE); GLUCOSE, URINE NEGATIVE (NEGATIVE); KETONES,URINE TRACE mg/dL (NEGATIVE); LEUKOCYTE ESTERASE,URINE TRACE (NEGATIVE); NITRITE,URINE NEGATIVE (NEGATIVE); PROTEIN,URINE NEGATIVE (NEGATIVE); UROBILINOGEN,URINE NEGATIVE mg/dL (<2.0)
[2016-08-01] MEDS: PIPERACILLIN SODIUM/TAZOBACTAM 3.375 GM in NORMAL SALINE 100 ML IV SCH ×2 (12:09→17:27)
[2016-08-01] MEDS ORDERED: VANCOMYCIN HCL 1,500 MG in DEXTROSE 5%-WATER 250 ML IV SCH (13:00)
--- NOTE | 2016-08-01 16:08 | Physician Advisory Note ---
Physician Advisor ProgressNote .: Pursuant to the plan for [facility], I have reviewed the medical record for this patient. Physician Advisor Statement: REALLY nice H&P documentation of acute & chronic co-morbidities. Thanks! CK
[2016-08-01] MEDS ORDERED: POTASSIUM CHLORIDE 10 MEQ TABLET.SA PO ONE (18:00)
[2016-08-01] MEDS ORDERED: NORMAL SALINE IV ONE ×2 (18:30)
[2016-08-01] MEDS ORDERED: POTASSIUM CHLORIDE IV ONE ×2 (18:30)
[2016-08-02] MEDS: PIPERACILLIN SODIUM/TAZOBACTAM 3.375 GM in NORMAL SALINE 100 ML IV SCH ×2 (00:51→06:02)
--- NOTE | 2016-08-02 08:28 | DISCHARGE SUMMARY E ---
Discharge Summary NAME: ALYCIA CELAYA : 1955 AGE: 61Y ADMITTED: 08/01/2016 DISCHARGED: 08/02/2016 FINAL DIAGNOSES: 1. Post umbilical hernia repair with mesh. 2. Postoperative ileus. 3. Cellulitis of incision site. HOSPITAL COURSE: This is a 61-year-old male who underwent repair of incarcerated umbilical hernia with mesh about 8 days ago. The patient is discharged around the 4th postop day, but came back 2 days later with abdominal pains and nausea. He had a CAT scan on admission, which was nonspecific bowel gas pattern. His white count was slightly elevated around 10.9. He was kept n.p.o. and started on IV antibiotics with Zosyn and vancomycin. He was seen by the hospitalist and placed on antibiotics primarily for cellulitis of the abdominal wound. The patient did have methotrexate therapy 2 days prior to admission. He has been taking methotrexate almost every week for his rheumatoid arthritis. On the day of discharge the patient was able to have a bowel movement and has minimal pains in the abdomen. He was able to tolerate a soft diet. He was then discharged on p.o. Augmentin 500 mg t.i.d. for the next week and to be followed up in the surgical clinic on August 07. Advised not to lift anything more than 15 pounds for the next 2 weeks. He can continue on a soft diet. DICTATING PHYSICIAN: KYLE SESAY M.D. [id number] PHY#: [id number] ID: [id number] JOB#: [id number] ACCT: [id number] cc:Kamini LAUGHLIN M.D. >
--- NOTE | 2016-08-02 08:48 | PDOC PROGRESS REPORT ---
Subjective Progress Note for:: 08/02/16 Subjective:: The patient is much improved this morning. He has been seen by the general surgery service who plans to discharge him home this afternoon if he tolerates his diet today. When I saw the patient he looks like he feels much better this morning. He denies fever chills. No chest pain, shortness of breath or heart palpitations. He has had no nausea or vomiting. He has only minimal abdominal pain mainly around his incision site. He states that he has been passing gas and he has had a bowel movement. He reports no dysuria, frequency or hematuria. Physical Exam Vital Signs: Temp Pulse Resp BP Pulse Ox 98.8 F 89 18 148/67 H 99 08/02/16 07:54 08/02/16 07:54 08/02/16 07:54 08/02/16 07:54 08/02/16 07:54 Intake & Output 08/01/16 08/02/16 08/03/16 06:59 06:59 06:59 Intake Total 0 857 Output Total 325 1450 Balance -325 -593 General appearance: PRESENT: no acute distress, cooperative, well-developed, well-nourished Head exam: PRESENT: atraumatic, normocephalic Mouth exam: PRESENT: moist, neck supple Respiratory exam: PRESENT: clear to auscultation eric. ABSENT: accessory muscle use, chest wall tenderness, rales, rhonchi, wheezes Cardiovascular exam: PRESENT: RRR, +S1, +S2 GI/Abdominal exam: PRESENT: hypoactive bowel sounds, tenderness. ABSENT: guarding - The patient has some tenderness to palpation in his abdomen mostly around his incision site., rebound, rigid Rectal exam: PRESENT: deferred Extremities exam: ABSENT: calf tenderness, clubbing, pedal edema Musculoskeletal exam: PRESENT: ambulatory Neurological exam: PRESENT: alert, awake, oriented to person, oriented to place , oriented to time, oriented to situation Psychiatric exam: PRESENT: appropriate affect Skin exam: PRESENT: dry, warm Results Laboratory Results: 08/01/16 09:55 08/01/16 09:55 08/01/16 08/01/16 08/01/16 09:55 09:55 10:15 WBC 10.9 H RBC 3.38 L Hgb 10.2 L Hct 31.4 L MCV 93 MCH 30.1 MCHC 32.4 RDW 20.1 H Plt Count 211 Seg Neutrophils % Not Reportable Lymphocytes % Not Reportable Monocytes % Not Reportable Eosinophils % Not Reportable Basophils % Not Reportable Absolute Neutrophils Not Reportable Absolute Lymphocytes Not Reportable Absolute Monocytes Not Reportable Absolute Eosinophils Not Reportable Absolute Basophils Not Reportable Sodium 144.5 Potassium 3.3 L Chloride 109 H Carbon Dioxide 22 Anion Gap 14 BUN 17 Creatinine 1.30 H Est GFR ( Amer) > 60 Est GFR (Non-Af Amer) 56 L Glucose 102 Calcium 9.1 Urine Color YELLOW Urine Appearance SLIGHTLY-CLOUDY Urine pH 5.0 Ur Specific [place] 1.010 Urine Protein NEGATIVE Urine Glucose (UA) NEGATIVE Urine Ketones TRACE H Urine Blood NEGATIVE Urine Nitrite NEGATIVE Ur Leukocyte Esterase TRACE H Urine WBC (Auto) 4 Urine RBC (Auto) 2 Impressions: KUB X-Ray 07/31/16 16:58 IMPRESSION: Nonspecific gas pattern. Postsurgical changes are present clips in the midline. Assessment & Plan - Diagnosis (1) Postoperative ileus Plan: Resolving. General surgery plans to send him home this afternoon if he tolerates his diet. (2) Cellulitis Plan: Much improved. He will continue IV vancomycin and Zosyn here in the hospital. Defer to general surgery on what place him on at the time of discharge. (3) Rheumatoid arthritis Plan: He will resume his usual schedule of methotrexate as advised by general surgery. (4) Diabetes mellitus Qualifiers: Diabetes mellitus type: type 2 Plan: Stable. He will resume his home regimen at discharge. (5) Low grade fever Plan: Resolved (6) Elevated serum creatinine Plan: I am unsure what his baseline is. Labs are still pending for this morning. (7) Metabolic acidosis Plan: Again repeat labs are still pending but he seems to be much improved. (8) Anemia Plan: Stable. - Time Time Spent with patient: Less than 15 minutes Anticipated discharge: Home Disposition: The patient seems to be improving. He will be discharged per general surgery hopefully this afternoon. Sound physicians will sign off at this time. Thank you for the consult of this patient.
[2016-08-02 10:06] LABS: ANION GAP 11 (5-19); BLOOD UREA NITROGEN 16 mg/dL (7-20); CALCIUM 9.3 mg/dL (8.4-10.2); CARBON DIOXIDE 23 mmol/L (22-30); CHLORIDE 110 mmol/L (98-107); CREATININE RESULT 1.53 mg/dL (0.52-1.25); GLUCOSE 160 mg/dL (75-110); POTASSIUM 3.6 mmol/L (3.6-5.0); SODIUM 144.2 mmol/L (137-145)
[2016-08-02 10:52] VITALS: BP 164/62
== END 2016-08-02 12:02 | disposition home or self-care (01) ==
LOC: ER 16:14 → EH 20:25 → UNDOADMOB 20:25 → EH 23:30 → 4N 23:30 → EH 08-01 00:46 → 4N 08-01 00:46
PROVIDERS: ATTEND Surgery
DX: K91.3 Postprocedural intestinal obstruction (principal); Y83.8 Other surgical procedures as the cause of abnormal reaction of the patient, or of later complication, without mention of misadventure at the time of the procedure; T81.4XXA Infection following a procedure, initial encounter; L03.311 Cellulitis of abdominal wall; R79.89 Other specified abnormal findings of blood chemistry; E87.2 Acidosis; D50.9 Iron deficiency anemia, unspecified; E11.9 Type 2 diabetes mellitus without complications; R50.9 Fever, unspecified; M06.9 Rheumatoid arthritis, unspecified; I10 Essential (primary) hypertension; I25.10 Atherosclerotic heart disease of native coronary artery without angina pectoris; Z79.84 Long term (current) use of oral hypoglycemic drugs; Z79.899 Other long term (current) drug therapy
CPT/HCPCS: 99285; 96360; 96361; 36415 ×3; 87040; 87086; 82962 ×2; 85025 ×2; 87088; 80048 ×2; 80053; 81001; 87186; 87493 ×2; 74000; J3480; J7060; J7030; J7050; J3370; J2543 ×2

== ENCOUNTER 2016-09-23 00:06 | Emergency (ER) | payer OTHER ==
[2016-09-23] MEDS ORDERED: PROCHLORPERAZINE EDISYLATE INJ 10 MG/2 ML VIAL IV ONE (01:45)
[2016-09-23] MEDS ORDERED: KETOROLAC TROMETHAMINE INJ/PF 30 MG/1 ML SDV IV ONE (01:45)
[2016-09-23] MEDS ORDERED: LIDOCAINE 5% (700 MG) TRANSDERMAL ADH..PATCH TP ONE (01:45)
[2016-09-23] MEDS ORDERED: DIAZEPAM INJ 10 MG/2 ML DISP.SYRIN IV ONE (01:45)
--- NOTE | 2016-09-23 01:53 | ER Document Report ---
ED General - General Chief Complaint: Neck Pain < 24hrs old Stated Complaint: NECK PAIN Time Seen by Provider: 09/23/16 01:23 Notes: Patient is a 61-year-old male with past medical history of diabetes, prior CVA, hypertension, rheumatoid arthritis currently on methotrexate and schedule start Humira soon who presents with 4 days of progressively worsening diffuse joint pain, and 45 hours of severe right-sided neck pain. Patient states that he had left-sided neck pain for the past 24 hours but acutely began to have worsening right-sided neck pain over the last several hours. Described as a severe, constant aching pain. Any attempt at moving the neck worsens the pain. He has tried heat to the area without improvement of the pain. States he has had similar episodes in the past with flares of his rheumatoid arthritis. He has not seen his primary care doctor regarding today's concerns. He denies any weakness, numbness, altered mental status, fever or vomiting. Denies any chest pain or shortness of breath. Denies any trauma or falls. TRAVEL OUTSIDE OF THE [place] IN LAST 30 DAYS: No - Related Data Allergies/Adverse Reactions: enalapril [Enalapril] Allergy (Verified 07/25/16 22:37) swelling MSG Allergy (Uncoded 08/01/16 01:39) Past Medical History - General Information source: Patient - Social History Smoking Status: Never Smoker Frequency of alcohol use: None Drug Abuse: None Lives with: Spouse/Significant other Family History: None, Reviewed & Not Pertinent Patient has suicidal ideation: No Patient has homicidal ideation: No - Past Medical History Cardiac Medical History: Reports: Hx Coronary Artery Disease, Hx Hypertension Denies: Hx Heart Attack Pulmonary Medical History: Denies: Hx Asthma, Hx Bronchitis, Hx COPD, Hx Pneumonia Neurological Medical History: Denies: Hx Cerebrovascular Accident, Hx Seizures Endocrine Medical History: Reports: Hx Diabetes Mellitus Type 2 Renal/ Medical History: Denies: Hx Peritoneal Dialysis Musculoskeltal Medical History: Reports Hx Arthritis - rheumatoid Past Surgical History: Reports: Other - Umbilical hernia repair - Immunizations Hx Diphtheria, Pertussis, Tetanus Vaccination: No Hx Pneumococcal Vaccination: 02/11/15 Review of Systems - Review of Systems Notes: Constitutional: Negative for fever. HENT: Negative for sore throat. Eyes: Negative for visual changes. Cardiovascular: Negative for chest pain. Respiratory: Negative for shortness of breath. Gastrointestinal: Negative for abdominal pain, vomiting or diarrhea. Genitourinary: Negative for dysuria. Musculoskeletal: Positive for diffuse musculoskeletal pain worse in the right neck Skin: Negative for rash. Neurological: Negative for headaches, weakness or numbness. 10 point ROS negative except as marked above and in HPI. Physical Exam - Vital signs Vitals: Temp Pulse Resp BP Pulse Ox 98.4 F 74 18 166/77 H 98 09/23/16 00:17 09/23/16 00:17 09/23/16 00:17 09/23/16 00:17 09/23/16 00:17 Interpretation: Hypertensive Notes: PHYSICAL EXAMINATION: GENERAL: Appears uncomfortable but no acute distress HEAD: Atraumatic, normocephalic. EYES: Pupils equal round and reactive to light, extraocular movements intact, sclera anicteric, conjunctiva are normal. ENT: nares patent, oropharynx clear without exudates. Moist mucous membranes. NECK: Pain on palpation of the right sternal cleidomastoid and right trapezius. No midline cervical spine tenderness. Difficulty with range of motion toward the right. LUNGS: Breath sounds clear to auscultation bilaterally and equal. No wheezes rales or rhonchi. HEART: Regular rate and rhythm without murmurs ABDOMEN: Soft, nontender, normoactive bowel sounds. No guarding, no rebound. No masses appreciated. EXTREMITIES: Normal range of motion, no pitting or edema. No cyanosis. NEUROLOGICAL: Face symmetric. Tongue protrudes midline. Extraocular motions intact. Pupils are 2 mm and equally reactive. Normal speech, normal gait. 5 out of 5 strength in both the distal and proximal upper and lower extremities bilaterally. Sensation is grossly intact throughout. Finger to nose testing normal. Pronator drift normal. PSYCH: Normal mood, normal affect. SKIN: Warm, Dry, normal turgor, no rashes or lesions noted. Course - Re-evaluation Re-evalutation: 09/23/16 01:52 Patient presents with diffuse joint pain in the setting of rheumatoid arthritis. Patient states pain is getting progressively worse over the last 1 week and was recently approved to start Humira but has not started this medication. He is currently on methotrexate for suppression therapy for his rheumatoid arthritis. He presents complaining of severe bilateral neck pain which has been getting progressively worse over the last 2-3 days. He has point tenderness to palpation of the external cleidomastoid bilaterally and has difficulty rotating his neck to the right. He has no neurologic deficit on examination, no cranial nerve deficits. History and exam is not consistent with cervical artery dissection, acute cervical spine injury, no history of trauma. I do not suspect an acute stroke, and patient also denies any chest pain, shortness of breath, nausea, vomiting or diaphoresis to suggest a cardiac origin of his pain today. I do not believe any labs or imaging is indicated at this time. Will symptomatically treat and reassess. 09/23/16 02:51 Patient has had significant improvement in his symptoms, no longer complaining of significant pain at this time. He is resting calmly, wakes easily. Family would like to go home at this time which I think is reasonable. He remains without any neurologic deficit. At this time will discharge with return precautions and follow-up recommendations. Verbal discharge instructions given a the bedside and opportunity for questions given. Medication warnings reviewed. Patient is in agreement with this plan and has verbalized understanding of return precautions and the need for primary care follow-up in the next 24-72 hours. - Vital Signs Vital signs: Temp Pulse Resp BP Pulse Ox 98.4 F 74 18 166/77 H 98 09/23/16 00:17 09/23/16 00:17 09/23/16 00:17 09/23/16 00:17 09/23/16 00:17 Discharge - Discharge Clinical Impression: Rheumatoid arthritis flare Condition: Good Disposition: HOME, SELF-CARE Additional Instructions: Please follow-up with your primary doctor regarding your acute flare of rheumatoid arthritis and pain management. For your pain: Take ibuprofen 600 mg and acetaminophen 1000 mg every 6 hours together as needed for pain. If this does not control your pain you may take 15 mg of oral morphine every 4 hours as needed. Please be very careful about using the oral morphine and only use this for severe pain. Prescriptions: Morphine Sulfate [Morphine Ir 15 mg Tablet] 15 mg PO Q4HP PRN #12 tablet PRN Reason: Lidocaine [Lidoderm 5% (700 mg) Transdermal Patch] 1 patch TP DAILY #30 adh..patch Lidocaine [Lidoderm 5% (700 mg) Transdermal Patch] 1 patch TP DAILY #30 adh..patch Referrals: PEBBLES LANGSTON MD [Primary Care Provider] - Follow up as needed
[2016-09-23 03:40] VITALS: BP 136/74
== END 2016-09-23 03:37 | disposition home or self-care (01) ==
LOC: ER 00:06
DX: M06.9 Rheumatoid arthritis, unspecified (principal); M54.2 Cervicalgia; E11.9 Type 2 diabetes mellitus without complications; I25.10 Atherosclerotic heart disease of native coronary artery without angina pectoris; I10 Essential (primary) hypertension; Z79.899 Other long term (current) drug therapy; Z88.8 Allergy status to other drugs, medicaments and biological substances
CPT/HCPCS: 99283; J3360; J1885; J0780

== ENCOUNTER 2016-11-08 07:47 | Day surgery (SDC) | payer OTHER ==
[~2016-11-08 07:47] MED LIST: EPINEPHRINE INJ 1 MG/10 ML DISP.SYRIN ONE; FLUMAZENIL INJ 0.5 MG/5 ML VIAL ONE; GLUCAGON,HUMAN RECOMB 1 MG INJ ONE; GLYCOPYRROLATE INJ 0.4 MG/2 ML VIAL ONE; NALOXONE HCL INJ/PF 0.4 MG/1 ML SDV ONE; ONDANSETRON HCL INJ/PF 4 MG/2 ML SDV ONE
[2016-11-08] MEDS: MIDAZOLAM 2 MG/2 ML INJ ONE ×2 (08:22→08:32)
[2016-11-08] MEDS: FENTANYL CITRATE INJ/PF 100 MCG/2 ML AMPUL ONE ×2 (08:24→08:37)
--- NOTE | 2016-11-08 09:04 | Operative Report ---
Operative Report DATE OF SURGERY: 11/08/16 PREOPERATIVE DIAGNOSIS: 1. Anemia POSTOPERATIVE DIAGNOSIS: Same; no evidence of colonic pathology to explain anemia. Small transverse colon polyp OPERATION: 1. Total colonoscopy to cecum with photodocumentation. 2. Transverse colon polypectomy SURGEON: KAREY BERMUDEZ ANESTHESIA: Moderate Sedation TISSUE REMOVED OR ALTERED: 1 polyp COMPLICATIONS: None ESTIMATED BLOOD LOSS: Scant INTRAOPERATIVE FINDINGS: See below PROCEDURE: Obtaining informed consent the patient was taken from the preoperative holding area to the main endoscopy suite where monitoring devices were attached to the patient. Plan and surgical timeout were conducted The patient was placed in the left lateral decubitus position with knees to chest. A perianal examination was performed. There was no visible or palpable anorectal pathology. Sphincter tone was felt to be normal. The flexible adult colonoscope was advanced through the anal rectal canal, all the way to the cecum. Utilization of the cecum was achieved and the ileocecal valve, the appendiceal orifice and transillumination of the anterior abdominal wall. This was an excellent study on the well-prepped bowel. The colonoscope was withdrawn slowly and methodically checked and the mucosa carefully. There was no evidence of tumor, stricture, bleeding; there was a very small sessile polyp in the transverse colon which was removed using the cold forceps device. Specimen retrieved and sent his transverse colon polyp. Bleeding was negligible. There was no evidence of diverticuloses. The scope was slowly withdrawn through the anal rectal canal. Complete visualization of the rectum was achieved with photodocumentation. The scope was withdrawn to the patient's anus. The patient tolerated the procedure well and was taken to the recovery area in stable condition. Per surveillance guidelines, patient will be appropriate candidate for follow- up colonoscopy in 3 years, or sooner if symptoms develop
--- NOTE | 2016-11-08 09:05 | PDOC DISCHARGE SUMMARY ---
Discharge Summary (SDC) - Discharge Final Diagnosis: Polyp transverse colon status post total colonoscopy with polypectomy Date of Surgery: 11/08/16 Discharge Date: 11/08/16 Condition: Good Treatment or Instructions: [place] [id number] POST ENDOSCOPY DISCHARGE INSTRUCTIONS 1. Diet: Start clear liquids that a regular diet as tolerated. 2. Resume all preoperative medications. All oral anticoagulants and aspirins can be resumed 24 hours after procedure. 3. If a polypectomy was performed some bleeding per rectum may occur. This should stop within 3 days. If not, please contact the office. 4. If you had a colonoscopy you may experience some bloating and delayed return of normal bowel function for several days, your regular bowel movement pattern should resume within a week. 5. Please contact [facility] at to make an appointment with Dr. Royal for 1 to 3 weeks following procedure. 6. If you have any questions or concerns regarding your care,treatment plan or follow up, please contact our office. 7. Per clinical guidelines we recommend you undergo a repeat colonoscopy in 3 years . Referrals: PEBBLES LANGSTON MD [Primary Care Provider] - Discharge Diet: As Tolerated Discharge Activity: Activity As Tolerated Home Care Assistance: None Needed Report the Following to Your Physician Immediately: Shortness of Breath, Increase in Pain, Fever over 101 Degrees
[2016-11-08 10:03] VITALS: BP 146/73
== END 2016-11-08 10:08 | disposition home or self-care (01) ==
LOC: END 07:47
PROVIDERS: ATTEND Surgery
PROC: 0DBL8ZX Excision of Transverse Colon, Via Natural or Artificial Opening Endoscopic, Diagnostic (ICD-10-PCS; principal; 2016-11-08 08:15)
DX: D12.3 Benign neoplasm of transverse colon (principal); D64.9 Anemia, unspecified; E11.9 Type 2 diabetes mellitus without complications; I10 Essential (primary) hypertension; M06.9 Rheumatoid arthritis, unspecified; Z88.8 Allergy status to other drugs, medicaments and biological substances; Z79.84 Long term (current) use of oral hypoglycemic drugs; Z79.899 Other long term (current) drug therapy; Z79.82 Long term (current) use of aspirin
CPT/HCPCS: 45380; 82962; 88305 ×2; J2250; J3010; J0171; J1610; J2310; J2405; J3490

== ENCOUNTER 2017-01-24 08:20 | Day surgery (SDC) | payer OTHER ==
[~2017-01-24 08:20] MED LIST changes: +FENTANYL CITRATE INJ/PF 100 MCG/2 ML AMPUL ONE; +MIDAZOLAM 2 MG/2 ML INJ ONE
[2017-01-24] MEDS: MIDAZOLAM 2 MG/2 ML INJ ONE ×2 (09:01→09:08)
--- NOTE | 2017-01-24 09:36 | PDOC DISCHARGE SUMMARY ---
Discharge Summary (SDC) - Discharge Final Diagnosis: 1. Anemia of unexplained etiology 2. Mild gastritis Date of Surgery: 01/24/17 Discharge Date: 01/24/17 Condition: Good Treatment or Instructions: [address] [address] POST ENDOSCOPY DISCHARGE INSTRUCTIONS 1. Diet: Start clear liquids that a regular diet as tolerated. 2. Resume all preoperative medications. All oral anticoagulants and aspirins can be resumed 24 hours after procedure. 3. If a polypectomy was performed some bleeding per rectum may occur. This should stop within 3 days. If not, please contact the office. 4. If you had a colonoscopy you may experience some bloating and delayed return of normal bowel function for several days, your regular bowel movement pattern should resume within a week. 5. Please contact [facility] at to make an appointment with Dr. Royal for 1 to 3 weeks following procedure. 6. If you have any questions or concerns regarding your care,treatment plan or follow up, please contact our office. Referrals: PEBBLES LANGSTON MD [Primary Care Provider] - Discharge Diet: As Tolerated Discharge Activity: Activity As Tolerated Home Care Assistance: None Needed Report the Following to Your Physician Immediately: Shortness of Breath, Increase in Pain, Fever over 101 Degrees
--- NOTE | 2017-01-24 09:40 | Operative Report ---
Operative Report DATE OF SURGERY: 01/24/17 PREOPERATIVE DIAGNOSIS: 1. Anemia secondary to blood loss POSTOPERATIVE DIAGNOSIS: Same with mild gastritis: No upper endoscopic evidence of intestinal bleeding source OPERATION: EGD with gastric biopsy SURGEON: KAREY BERMUDEZ ANESTHESIA: Moderate Sedation TISSUE REMOVED OR ALTERED: Mucosal biopsy COMPLICATIONS: None ESTIMATED BLOOD LOSS: Scant INTRAOPERATIVE FINDINGS: See below PROCEDURE: Patient was taken to the preop area to the endoscopy suite was placed in semirecumbent position oral mouthpiece inserted monitoring devices attached and appropriate level of conscious sedation induced. Surgical plan surgical timeout conducted The flexible adult endoscope was advanced to the hypopharynx down the esophagus through the stomach into the duodenum. This was excellent study well tolerated by the patient. The duodenum was normal. We spent a fair bit of time advancing withdrawing and re-advancing the scope through the pylorus. Friability but no bryan ulcer tumor bleeding or stricture. There was no evidence of clot. This region also examined due to the tour of the pyloric channel, and the likely nature of the bowel for the end of the esophagoscope. Nonetheless I believe we examine this area sufficiently, and determined there was no source of GI bleeding here. The remainder of the stomach was significant only for mild gastritis. There is no evidence of ulceration, tumor or polyp. Photos are taken and a random biopsy of the gastric antrum were obtained for ASHLEY testing. The scope was retroflexed in a good look at the GE junction obtained. There is no evidence of significant hiatal hernia. Scope was withdrawn. The Z line was at approximately 39 cm from the incisor. There was no evidence of esophagitis. The remainder of the esophagus was unremarkable. There is no evidence of varices. Scope was withdrawn to the patient oropharynx. The patient tolerated procedure well.
[2017-01-24 10:21] VITALS: BP 159/79
== END 2017-01-24 10:30 | disposition home or self-care (01) ==
LOC: END 08:20
PROVIDERS: ATTEND Surgery
PROC: 0DB68ZX Excision of Stomach, Via Natural or Artificial Opening Endoscopic, Diagnostic (ICD-10-PCS; principal; 2017-01-24 09:00)
DX: K29.50 Unspecified chronic gastritis without bleeding (principal); D64.9 Anemia, unspecified; K44.9 Diaphragmatic hernia without obstruction or gangrene; M06.9 Rheumatoid arthritis, unspecified; I10 Essential (primary) hypertension; E11.9 Type 2 diabetes mellitus without complications; Z79.82 Long term (current) use of aspirin; Z79.899 Other long term (current) drug therapy; Z79.84 Long term (current) use of oral hypoglycemic drugs
CPT/HCPCS: 43239; 82962; 88342 ×2; 88305 ×2; J2250; J3010; J0171; J1610; J2310; J2405; J3490

== ENCOUNTER → 2017-02-06 | Outpatient (CLI) | payer OTHER ==
--- NOTE | 2017-02-06 15:10 | RADIOLOGY REPORT (SQ) ---
EXAM DESCRIPTION: UPPER GI/SM BOWEL COMPLETED DATE/TIME: 02/06/2017 12:03 pm REASON FOR STUDY: ANEMIA D64.9 ANEMIA, UNSPECIFIED COMPARISON: None. TECHNIQUE: Under fluoroscopic guidance, patient ingested effervescent granules followed by thick an d thin barium. Fluoroscopic spot images and routine radiographic images acquired and stored on PACS . Following evaluation of esophagus and stomach, additional barium administered with serial delayed ab dominal radiographs until colonic identification. Fluoroscopic images recorded of the terminal ileu m. 12 MM BARIUM TABLET GIVEN: Yes. No significant delay in passage. FLUOROSCOPY TIME: 3.6 minutes of fluoroscopy was used. 25 images saved to PACS. LIMITATIONS: None. FINDINGS: NEUROMUSCULAR COORDINATION OF SWALLOW: Normal. No aspiration. ESOPHAGEAL MOTILITY: Normal peristalsis. No esophageal spasm. ESOPHAGEAL MUCOSA: Normal mucosa without masses or ulceration. GASTRO-ESOPHAGEAL JUNCTION: Small sliding hiatal hernia with mild gastroesophageal reflux. STOMACH: Normal without masses or ulcerations. GASTRIC OUTLET: No delay in emptying. Normal pylorus. DUODENAL BULB: Normal distention. No spasm or ulceration. DUODENUM: Mucosa normal. No extrinsic masses or malrotation. PROXIMAL SMALL BOWEL: Normal as visualized. JEJUNUM: Normal mucosal pattern. No dilatation, segmentation, strictures or masses. ILEUM: Normal mucosal pattern. No dilatation, segmentation, strictures or masses. TERMINAL ILEUM AND ILEO-CECAL VALVE: Normal mucosal pattern without cobble-stoning or stricture. Nor mal compression. PROXIMAL COLON: Incompletely imaged. No abnormality. NON-GI TRACT STRUCTURES: No significant finding. OTHER: Transit time was normal with filling of the cecum seen at 3 hours. IMPRESSION: 1. SMALL SLIDING HIATAL HERNIA WITH MILD GASTROESOPHAGEAL REFLUX. 2. STOMACH AND DUODENUM ARE UNREMARKABLE. 3. NORMAL SMALL BOWEL FOLLOW-THROUGH. COMMENT: Quality ID [id number]: Final reports for procedures using fluoroscopy that document radiation exp osure indices, or exposure time and number of fluorographic images (if radiation exposure indices are not available) TECHNICAL DOCUMENTATION: JOB ID: [id number]- All Rights Reserved
== END ==
LOC: RAD 08:02
PROVIDERS: ATTEND Surgery
DX: D64.9 Anemia, unspecified (principal); K21.9 Gastro-esophageal reflux disease without esophagitis; K44.9 Diaphragmatic hernia without obstruction or gangrene
CPT/HCPCS: 74249

== ENCOUNTER → 2017-08-15 | Outpatient (CLI) | payer OTHER ==
[2017-08-16 09:12] LABS: PROSTATE SPECIFIC ANTIGEN 0.9 ng/mL (0.0-4.0); PSA % FREE 32.2 % (.); PSA FREE 0.29 ng/mL
== END ==
LOC: OD 09:26
PROVIDERS: ATTEND Urology
DX: N40.1 Benign prostatic hyperplasia with lower urinary tract symptoms (principal)
CPT/HCPCS: 36415; 84154

== ENCOUNTER 2019-01-28 07:19 | Day surgery (SDC) | payer OTHER ==
[~2019-01-28 07:19] MED LIST changes: +DIPHENHYDRAMINE HCL 50 MG/ML VIAL ONE; -GLYCOPYRROLATE INJ 0.4 MG/2 ML VIAL ONE; -MIDAZOLAM 2 MG/2 ML INJ ONE
[2019-01-28] MEDS: MIDAZOLAM 2 MG/2 ML INJ ONE ×2 (08:06→08:10)
--- NOTE | 2019-01-28 08:18 | Operative Report ---
Operative Report DATE OF SURGERY: 01/28/19 Operative Report: The risks benefits and alternatives of the procedure explained to the patient in detail and informed consent is obtained.A GIF Olympus video scope was inserted into the patient's mouth and hypopharynx, the esophagus is identified intubated and insufflated, the scope was then advanced through the esophagus stomach and duodenum, retroflexion maneuver is done, the esophagus stomach and first and second portions of the duodenum examined. PREOPERATIVE DIAGNOSIS: Gastroesophageal reflux disease, dyspepsia POSTOPERATIVE DIAGNOSIS: Hiatal hernia. Gastritis status post biopsy without Helicobacter pylori OPERATION: EGD with biopsy SURGEON: TESSIE SOLITARIO ANESTHESIA: Moderate Sedation - 4 mg of Versed, 50 mcg of fentanyl. Conscious sedation monitoring time 30 minutes. TISSUE REMOVED OR ALTERED: As noted above. COMPLICATIONS: None. ESTIMATED BLOOD LOSS: None. INTRAOPERATIVE FINDINGS: As noted above. PROCEDURE: Patient tolerated the procedure well. No immediate postprocedure complications are noted. Patient is discharged in good condition. Discharge date 01/28/2019. Discharge diet: Regular. Discharge activity: Regular. 2 to 3-week follow-up to discuss findings. Patient is instructed to call the office or proceed to the emergency room should there be any further problems or questions. Wait on the pathology.
[2019-01-28 08:57] VITALS: BP 118/71
== END 2019-01-28 08:35 | disposition home or self-care (01) ==
LOC: END 07:19
PROVIDERS: ATTEND Internal Medicine Gastroenterology
DX: K21.9 Gastro-esophageal reflux disease without esophagitis (principal); K44.9 Diaphragmatic hernia without obstruction or gangrene; C90.00 Multiple myeloma not having achieved remission
CPT/HCPCS: 43239; 82962; 88342 ×2; 88305 ×2; J2250; J3010; J0171; J1200; J1610; J2310; J2405; J3490